=== PATIENT | female | born 1960 | race Two or more races ===

== ENCOUNTER 2020-09-25 15:13 | Inpatient (IN) | payer MEDICAID ==
[~2020-09-25] VITALS: Ht 149.9 cm; Wt 59.0 kg
[2020-09-26 02:42] LABS: Basophils # (auto) 0.1 10 ^3/uL (0-0.2); Basophils % (auto) 1.5 % (0.0-2.0); Eosinophils # (auto) 0.3 10 ^3/uL (0-0.8); Eosinophils % (auto) 5.3 % (0.0-7.0); Hematocrit 45.9 % (36.0-46.0); Hemoglobin 15.4 g/dL (12.2-16.2); Lymphocytes # (auto) 1.8 10 ^3/uL (0.4-5.4); Lymphocytes % (auto) 29.8 % (10.0-50.0); Mean Corpuscular Hemoglobin 30.9 pg (28.0-32.0); Mean Corpuscular Hgb Conc. 33.7 g/dL (32.0-36.0); Mean Corpuscular Volume 91.7 fL (80.0-100.0); Monocytes # (auto) 0.6 10 ^3/uL (0-1.3); Monocytes % (auto) 9.4 % (0.0-12.0); Neutrophils # (auto) 3.3 10 ^3/uL (1.6-8.6); Platelet Count (auto) 300 10^3/uL (140-450); Red Blood Cells 5.01 10^6/uL (4.0-5.20); Red Cell Distribution Width 13.9 % (11.8-14.3); White Blood Cell 6.1 10^3/uL (4.4-10.8)
[2020-09-26 02:56] LABS: Albumin 3.7 g/dL (3.4-5.0); Calcium 9.1 mg/dL (8.5-10.1); Magnesium 2.2 mg/dL (1.6-2.6); Potassium 3.8 mmol/L (3.5-5.1)
[2020-09-26 02:57] LABS: Lactic Acid w/Reflex 2.6 mmol/L (0.4-2.0)
[2020-09-26 02:59] LABS: BUN/Creatinine Ratio 21.4
[2020-09-26 03:01] LABS: Bilirubin, Total 0.4 mg/dL (0.2-1.0); Total Protein 8.6 g/dL (6.4-8.2)
[2020-09-26] MEDS ORDERED: cefTRIAXone 1GM/50ML D5W 50 ML IV SCH (03:30)
[2020-09-26] MEDS ORDERED: TEMAZEPAM 15 MG CAP PO PRN (03:30)
[2020-09-26] MEDS ORDERED: ONDANSETRON HCL 4 MG/2 ML VIAL IV PRN (03:30)
[2020-09-26] MEDS ORDERED: HYDROcodone-ACET 5/325MG TAB PO PRN (03:30)
[2020-09-26] MEDS ORDERED: VANCOMYCIN PER PHARMACY 0 MG IV SCH (03:30)
[2020-09-26] MEDS ORDERED: ACETAMINOPHEN 325 MG TAB PO PRN (03:30)
[2020-09-26 04:30] LABS: CRP High Sensitivity 1.41 mg/dL (< 0.3)
[2020-09-26] MEDS ORDERED: ETAN50IN10 SUBCUT (08:36)
[2020-09-26] MEDS ORDERED: FOLITAB22 PO (08:39)
[2020-09-26] MEDS ORDERED: PRE1T PO (08:39)
[2020-09-26] MEDS ORDERED: METH2.5T PO (08:39)
[2020-09-26 09:00] VITALS: BP 133/81
[2020-09-26] MEDS ORDERED: AZITHROMYCIN 500MG/ 250ML 250 ML IV SCH (10:00)
[2020-09-26] MEDS: FAMOTIDINE 20 MG TAB PO SCH (10:05)
[2020-09-26] MEDS: ZINC SULFATE 220mg CAP or TAB PO SCH (10:05)
[2020-09-26] MEDS: VANCOMYCIN 1GM/250ML 250 ML IV SCH ×2 (10:05→20:51)
[2020-09-26 13:00] VITALS: BP 122/81
[2020-09-26] MEDS ORDERED: NAPR375T27 PO (16:33)
[2020-09-26] MEDS ORDERED: NICOTINE 14 MG/24HR TOPICAL PATCH TD ONE (16:45)
[2020-09-26] MEDS ORDERED: LORazepam 0.5 MG TAB PO PRN (16:45)
[2020-09-26 17:00] VITALS: BP 118/70
[2020-09-26 22:00] VITALS: BP 105/64
[2020-09-27 05:00] VITALS: BP 101/62
[2020-09-27 07:23] LABS: Basophils # (auto) 0.1 10 ^3/uL (0-0.2); Basophils % (auto) 1.2 % (0.0-2.0); Eosinophils # (auto) 0.2 10 ^3/uL (0-0.8); Eosinophils % (auto) 3.8 % (0.0-7.0); Hematocrit 37.8 % (36.0-46.0); Hemoglobin 13.1 g/dL (12.2-16.2); Lymphocytes # (auto) 1.6 10 ^3/uL (0.4-5.4); Lymphocytes % (auto) 23.7 % (10.0-50.0); Mean Corpuscular Hemoglobin 30.9 pg (28.0-32.0); Mean Corpuscular Hgb Conc. 34.5 g/dL (32.0-36.0); Mean Corpuscular Volume 89.6 fL (80.0-100.0); Monocytes # (auto) 0.5 10 ^3/uL (0-1.3); Monocytes % (auto) 7.5 % (0.0-12.0); Neutrophils # (auto) 4.2 10 ^3/uL (1.6-8.6); Neutrophils % (auto) 63.8 % (37.0-80.0); Platelet Count (auto) 251 10^3/uL (140-450); Red Blood Cells 4.22 10^6/uL (4.0-5.20); Red Cell Distribution Width 13.2 % (11.8-14.3); White Blood Cell 6.6 10^3/uL (4.4-10.8)
[2020-09-27 07:40] LABS: BUN/Creatinine Ratio 24.6; Calcium 8.4 mg/dL (8.5-10.1); Potassium 3.9 mmol/L (3.5-5.1)
[2020-09-27 09:00] VITALS: BP 112/65
[2020-09-27] MEDS ORDERED: cefTRIAXone 1GM/50ML D5W 50 ML IV SCH ×2 (09:00)
[2020-09-27] MEDS: VANCOMYCIN 1GM/250ML 250 ML IV SCH (09:14)
[2020-09-27] MEDS: ZINC SULFATE 220mg CAP or TAB PO SCH (09:17)
[2020-09-27] MEDS: FAMOTIDINE 20 MG TAB PO SCH (09:17)
[2020-09-27] MEDS ORDERED: NICOTINE 14 MG/24HR TOPICAL PATCH TD SCH (10:00)
[2020-09-27 13:00] VITALS: BP 120/76
[2020-09-27] MEDS ORDERED: levoFLOXacin 250 MG TAB PO ONE (14:00)
[2020-09-27 14:36] VITALS: BP 107/62
[2020-09-27 17:00] VITALS: BP 148/102
== END 2020-09-27 17:54 | disposition home or self-care (01) | DRG 344 ==
LOC: ER 15:16 → OVERFLOW 09-26 03:25 → EAST 09-26 08:00
PROVIDERS: ADMIT Nurse Practitioner; ATTEND Internal Medicine
DX: M86.8X7 Other osteomyelitis, ankle and foot (principal); U07.1 COVID-19; M19.071 Primary osteoarthritis, right ankle and foot; L03.031 Cellulitis of right toe; F17.210 Nicotine dependence, cigarettes, uncomplicated; L60.0 Ingrowing nail; M06.9 Rheumatoid arthritis, unspecified; Z80.41 Family history of malignant neoplasm of ovary; Z79.899 Other long term (current) drug therapy
CPT/HCPCS: 36415; 71045; 73630; 73700; 80048; 80053; 82728; 83605; 83615; 83735; 84550; 85025; 85652; 86141; 87040; 87426; 93926; 96365; 96366; G0378; J0696